=== PATIENT | male | born 1940 | race Caucasian/White ===

== ENCOUNTER 2016-04-19 20:12 | Emergency (ER) | payer OTHER ==
[~2016-04-19] VITALS: Ht 180.3 cm; Wt 93.0 kg
[~2016-04-19 20:12] MED LIST: ASPI81TA2 PO; LISI-221 PO; NEU300 PO; PRAV20TA59 PO; PRO40 PO; SITA100T7 PO
--- NOTE | 2016-04-19 20:12 | NUR ---
Patient to ER bed 2 to gown for evaluation. Side rails up. Report given to Eddie TIPTON.
[2016-04-19 20:15] VITALS: BP 154/89; PULSE 84; RESP 20; TEMP 98; O2SAT 96
--- NOTE | 2016-04-19 20:15 | NUR ---
Patient is an ETOH patient that was drinking at home and fell back and hit the back of his head. NO KO and placed on the monitor.
--- NOTE | 2016-04-19 20:30 | NUR ---
ER at bedside examining patient.
--- NOTE | 2016-04-19 20:45 | NUR ---
MD placed marleen in patient scaple. No more bleeding.
[2016-04-20 02:30] VITALS: BP 138/88; PULSE 82; RESP 18; TEMP 98; O2SAT 99
--- NOTE | 2016-04-20 02:30 | NUR ---
Patient given written and verbal discharge instructions and verbalizes understanding. ER MD discussed with patient the results and treatment provided. Patient in stable condition. ID arm band removed. Patient educated on pain management and to follow up with PMD. Pain Scale 0/10. Opportunity for questions provided and answered.
== END 2016-04-20 02:30 | disposition home or self-care (01) ==
LOC: SED 20:12
DX: S01.01XA Laceration without foreign body of scalp, initial encounter (principal); F10.129 Alcohol abuse with intoxication, unspecified; E11.9 Type 2 diabetes mellitus without complications; I10 Essential (primary) hypertension; E78.00 Pure hypercholesterolemia, unspecified; W19.XXXA Unspecified fall, initial encounter; Y93.89 Activity, other specified; Y92.89 Other specified places as the place of occurrence of the external cause; Y99.8 Other external cause status
CPT/HCPCS: 70450-TC; 99284

== ENCOUNTER 2016-04-27 12:05 | Emergency (ER) | payer OTHER ==
[~2016-04-27] VITALS: Ht 180.3 cm; Wt 95.3 kg
[2016-04-27 12:05] VITALS: BP 163/87; PULSE 66; RESP 18; TEMP 97; O2SAT 100
--- NOTE | 2016-04-27 12:05 | NUR ---
Patient triaged and placed in waiting room. VSS and patient appears in no acute distress at this time. Accompanied by self, awaiting available bed, and MD notified of need for MSE.
--- NOTE | 2016-04-27 13:20 | NUR ---
Patient to ER bed 6 to gown for evaluation. Side rails up. Report given to Stephon TIPTON.
--- NOTE | 2016-04-27 13:30 | NUR ---
ER at bedside examining patient.
--- NOTE | 2016-04-27 13:31 | NUR ---
Patient is here for staple removal 6cm wound to top back of head with many marleen along a well approximated wound with no reness or pain.
--- NOTE | 2016-04-27 13:31 | NUR ---
Pt presents to ED for suture removal, wound well approx w/o s/s of infection noted.
--- NOTE | 2016-04-27 14:15 | NUR ---
Sutures removed 13 marleen acquired. Wound cleansed. ABx ointment applied.
[2016-04-27 14:56] VITALS: BP 158/86; PULSE 66; RESP 18; TEMP 97; O2SAT 100
--- NOTE | 2016-04-27 14:56 | NUR ---
Patient given written and verbal discharge instructions and verbalizes understanding. ER MD discussed with patient the results and treatment provided. Given copies of tests performed in ER. Patient in stable condition. ID arm band removed. Patient educated on pain management and to follow up with PMD. Pain Scale 0. Opportunity for questions provided and answered.
== END 2016-04-27 14:56 | disposition home or self-care (01) ==
LOC: SED 12:05
DX: S01.01XD Laceration without foreign body of scalp, subsequent encounter (principal); E11.9 Type 2 diabetes mellitus without complications; I10 Essential (primary) hypertension; E78.00 Pure hypercholesterolemia, unspecified; Z96.659 Presence of unspecified artificial knee joint; X58.XXXD Exposure to other specified factors, subsequent encounter; Y92.89 Other specified places as the place of occurrence of the external cause; Y99.8 Other external cause status
CPT/HCPCS: 99283